=== PATIENT | female | born 1975 | race African-American/Black ===

== ENCOUNTER 2017-02-25 21:34 | Emergency (ER) | payer BC, SELFPAY ==
[2017-02-25] MEDS ORDERED: Dexamethasone 10 MG/ML VIAL ONE (22:00)
== END 2017-02-25 22:40 | disposition home or self-care (01) ==
LOC: ERS 21:34
DX: J30.2 Other seasonal allergic rhinitis (principal); D50.0 Iron deficiency anemia secondary to blood loss (chronic); F17.210 Nicotine dependence, cigarettes, uncomplicated
CPT/HCPCS: 94640; 96372; J1100; J7620

== ENCOUNTER 2017-10-14 22:47 | Emergency (ER) | payer BC ==
[2017-10-14 23:19] LABS: Bilirubin Negative (Negative); Blood, Urine Large (Negative); Clarity CLEAR (Clear); Glucose, Urine (Dipstick) Negative (Negative); Leukocyte Negative (Negative); Nitrite Negative (Negative); Protein, Urine (Dipstick) Negative (Neg-Trace); Specific Gravity, Urine 1.005 (1.002-1.036); Urobilinogen 0.2 mg/dL (0.2-1.0)
[2017-10-14 23:24] LABS: Bacteria/HPF None Seen HPF (None Seen); Hyaline Casts/LPF 0-3 HYALINE CAST LPF (0-3 Hyaline); RBC/HPF 21-50 HPF (0-3); Squamous Epithelial 0-3 HPF (0-3); WBC/HPF 0-3 HPF (0-3)
== END 2017-10-15 00:20 | disposition home or self-care (01) ==
LOC: ERS 22:47
DX: R30.0 Dysuria (principal); D50.9 Iron deficiency anemia, unspecified; F17.210 Nicotine dependence, cigarettes, uncomplicated
CPT/HCPCS: 81003; 81015; 99283

== ENCOUNTER 2019-07-01 07:55 | Emergency (ER) | payer BC ==
[2019-07-01] MEDS ORDERED: Ondansetron ODT 4 MG TAB ONE (08:36)
[2019-07-01] MEDS ORDERED: Ibuprofen 200 MG TAB ONE ×2 (08:36→08:39)
== END 2019-07-01 10:07 | disposition home or self-care (01) ==
LOC: ERS 07:55
DX: B34.9 Viral infection, unspecified (principal); D50.9 Iron deficiency anemia, unspecified; F17.290 Nicotine dependence, other tobacco product, uncomplicated
CPT/HCPCS: 94640; J7620; Q0162

== ENCOUNTER 2019-10-28 13:40 | Emergency (ER) | payer BC | END 2019-10-28 14:30 | disposition home or self-care (01) | LOC: ERS 13:40 | DX: J00 Acute nasopharyngitis [common cold] (principal); J30.9 Allergic rhinitis, unspecified; D50.9 Iron deficiency anemia, unspecified; F17.290 Nicotine dependence, other tobacco product, uncomplicated | CPT/HCPCS: 99283 ==

== ENCOUNTER 2021-06-07 02:48 | Emergency (ER) | payer BC | END 2021-06-07 03:22 | disposition home or self-care (01) | LOC: ERS 02:48 | DX: J30.9 Allergic rhinitis, unspecified (principal); J32.9 Chronic sinusitis, unspecified; J06.9 Acute upper respiratory infection, unspecified; D50.9 Iron deficiency anemia, unspecified; F17.290 Nicotine dependence, other tobacco product, uncomplicated | CPT/HCPCS: 99283 ==

== ENCOUNTER 2021-09-17 01:47 | Emergency (ER) | payer BC ==
[2021-09-17] MEDS ORDERED: Acetaminophen 500 MG TAB ONE (02:40)
[2021-09-17 05:05] LABS: SARS-CoV-2 NAA Rapid Test Not Detected (NotDetected)
== END 2021-09-17 05:30 | disposition home or self-care (01) ==
LOC: ERS 01:47
DX: J06.9 Acute upper respiratory infection, unspecified (principal); J30.9 Allergic rhinitis, unspecified; Z20.822 Contact with and (suspected) exposure to COVID-19; D50.9 Iron deficiency anemia, unspecified; F17.210 Nicotine dependence, cigarettes, uncomplicated; D25.9 Leiomyoma of uterus, unspecified; Z79.899 Other long term (current) drug therapy
CPT/HCPCS: 99283